=== PATIENT | male | born 1985 | race Caucasian/White ===

== ENCOUNTER 2020-06-23 08:03 | Emergency (ER) | payer SELFPAY ==
[2020-06-23] MEDS ORDERED: Boostrix 0.5 ML VIAL ONE (08:21)
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
[2020-06-23] MEDS ORDERED: Morphine 4 MG/ML VIAL ONE ×2 (08:59→12:31)
[2020-06-23] MEDS ORDERED: Ondansetron ODT 4 MG TAB ONE (08:59)
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
[2020-06-23 09:20] LABS: #Lymphocytes 1.2 thou/uL (1.20-3.40); #Monocytes 0.6 thou/uL (0.11-0.59); #Neutrophils 9.8 thou/uL (1.40-6.50); %Basophils 0.3 % (0.0-1.0); %Eosinophils 0.3 % (0.0-10.0); %Monocytes 4.9 % (0.0-10.0); %Neutrophils 84.6 % (42.0-75.0); Hemoglobin 15.6 g/dL (14.0-18.0); Mean Corpuscular HGB CONC 32.9 g/dL (32.0-36.0); Mean Corpuscular Volume 91.3 fL (78.0-98.0); Mean Platelet Volume 8.7 fL (7.4-10.4); Platelet Count 184 thou/uL (130-400); RBC Distribution Width 12.7 % (11.5-14.5); Red Blood Cell (RBC) Count 5.19 mill/uL (4.70-6.10); White Blood Cell (WBC) Count 11.6 thou/uL (4.8-10.8)
[2020-06-23 09:45] LABS: INR-International Normal Ratio 1.1; PTT 27.5 sec (22.9-36.1); Prothrombin Time 13.9 sec (12.0-14.7)
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
[2020-06-23 10:36] LABS: ALT (SGPT) 42 U/L (8-55); AST (SGOT) 32 U/L (5-34); Albumin 3.9 g/dL (3.5-5.0); Alkaline Phosphatase 63 U/L (40-110); Anion Gap 18 mmol/L (10-20); BUN (Urea Nitrogen) 8 mg/dL (8.9-20.6); Bilirubin, Total 0.5 mg/dL (0.2-1.2); Calc. Creatinine Clearance 0 mL/min (70-130); Calcium 8.8 mg/dL (7.8-10.44); Carbon Dioxide 21 mmol/L (22-29); Chloride 105 mmol/L (98-107); Estimated GFR-MDRD Greater than 90; Globulin 2.7 g/dL (2.4-3.5); Glucose 124 mg/dL (70-105); Potassium 4.5 mmol/L (3.5-5.1); Protein, Total 6.6 g/dL (6.0-8.3); Sodium 139 mmol/L (136-145)
[2020-06-23] MEDS ORDERED: Lidocaine 1% w/Epinephrine 1:100K 20 ML VIAL ONE (10:56)
[2020-06-23] MEDS ORDERED: Bacitracin 1 PK ONE (11:27)
[2020-06-23] MEDS ORDERED: Ketorolac Tromethamine 30 MG/ML VIAL ONE (12:31)
[2020-06-23] MEDS ORDERED: Iopamidol 370 76% 100 ML VIAL ONE (13:41)
== END 2020-06-23 15:24 | disposition home or self-care (01) ==
LOC: ERS 08:03
DX: S12.100A Unspecified displaced fracture of second cervical vertebra, initial encounter for closed fracture (principal); S01.81XA Laceration without foreign body of other part of head, initial encounter; Z23 Encounter for immunization; V89.2XXA Person injured in unspecified motor-vehicle accident, traffic, initial encounter
CPT/HCPCS: 12011; 36415; 70450; 70498; 71045; 71260; 72125; 74177; 80053; 85025; 85610; 85730; 90471; 90715; 96374; 96375; 96376; J1885; J2270; Q0162; Q9967